=== PATIENT | male | born 1955 | race Caucasian/White ===

== ENCOUNTER → 2019-06-20 10:11 | Outpatient (BNVA) | payer MEDICARE, MEDICAID, SELFPAY | PROVIDERS: Family Provider Nurse Practitioner Family; PCP Nurse Practitioner Family; Visit Provider Anesthesiology | DX: M54.5 Low back pain (principal); M25.551 Pain in right hip; Z79.891 Long term (current) use of opiate analgesic | CPT/HCPCS: 99214 ==

== ENCOUNTER → 2019-12-10 10:41 | Outpatient (BNVA) | payer MEDICARE, SELFPAY | PROVIDERS: Family Provider Nurse Practitioner Family; PCP Nurse Practitioner Family; Visit Provider Anesthesiology Pain Medicine | DX: M51.16 Intervertebral disc disorders with radiculopathy, lumbar region (principal); M51.36 Other intervertebral disc degeneration, lumbar region; M47.816 Spondylosis without myelopathy or radiculopathy, lumbar region; M16.0 Bilateral primary osteoarthritis of hip; M25.551 Pain in right hip; Z79.891 Long term (current) use of opiate analgesic | CPT/HCPCS: 20610; 99214; J1030; J3490 ==

== ENCOUNTER 2019-12-18 12:47 | Outpatient (CLI) | payer MEDICARE, SELFPAY ==
--- NOTE | 2019-12-18 12:51 | XR_ITS ---
WS: [id number] HIPS BILATERAL TECHNIQUE: 5 views bilateral hips Including pelvis CLINICAL INFORMATION: pain COMPARISON: 09 07,011 FINDINGS: Postoperative changes left ZIA. Hardware appears well seated. No evidence of hardware loosening. Cerc travis wires. Advanced degenerative arthritis right hip with joint space narrowing and hypertrophic mary kate nges. Small wire fragment projected over the pelvis. XR/XR hip BI 3-4V wo/w pel [id number] IMPRESSION: 1. Postoperative changes left ZIA with cerclage wires. This appears relatively stable since 2010. 2. Advanced osteoarthritis right hip with joint space narrowing and hypertroph ic changes.
== END 2019-12-18 12:48 | disposition home or self-care (01) ==
LOC: RADWPI 12:50
PROVIDERS: Family Provider Nurse Practitioner Family; PCP Nurse Practitioner Family; Visit Provider Anesthesiology Pain Medicine
DX: M16.11 Unilateral primary osteoarthritis, right hip
CPT/HCPCS: 73522

== ENCOUNTER → 2020-01-30 09:08 | Outpatient (BNVA) | payer MEDICARE, SELFPAY | PROVIDERS: Family Provider Nurse Practitioner Family; PCP Nurse Practitioner Family; Visit Provider Anesthesiology Pain Medicine | DX: M51.16 Intervertebral disc disorders with radiculopathy, lumbar region (principal); M47.816 Spondylosis without myelopathy or radiculopathy, lumbar region; M51.36 Other intervertebral disc degeneration, lumbar region; M70.61 Trochanteric bursitis, right hip; Y93.9 Activity, unspecified; Z79.891 Long term (current) use of opiate analgesic | CPT/HCPCS: 99213 ==

== ENCOUNTER → 2020-02-01 08:49 | Outpatient (BNVA) | payer MEDICARE, SELFPAY | PROVIDERS: Family Provider Nurse Practitioner Family; PCP Nurse Practitioner Family; Visit Provider Nurse Practitioner Family | DX: J02.0 Streptococcal pharyngitis (principal); Z20.828 Contact with and (suspected) exposure to other viral communicable diseases; J01.40 Acute pansinusitis, unspecified | CPT/HCPCS: 87071; 87400; 87635; 87880 ==

== ENCOUNTER → 2020-02-27 09:43 | Outpatient (BNVA) | payer MEDICARE, SELFPAY | PROVIDERS: Family Provider Nurse Practitioner Family; PCP Nurse Practitioner Family; Visit Provider Anesthesiology Pain Medicine | DX: G89.29 Other chronic pain (principal); M47.816 Spondylosis without myelopathy or radiculopathy, lumbar region; M51.16 Intervertebral disc disorders with radiculopathy, lumbar region; M51.36 Other intervertebral disc degeneration, lumbar region; M70.61 Trochanteric bursitis, right hip; Y93.9 Activity, unspecified; Z79.891 Long term (current) use of opiate analgesic | CPT/HCPCS: 99213 ==

== ENCOUNTER → 2020-04-16 13:45 | Outpatient (BNVA) | payer MEDICARE, SELFPAY | PROVIDERS: Family Provider Nurse Practitioner Family; PCP Nurse Practitioner Family; Visit Provider Anesthesiology Pain Medicine | DX: G89.29 Other chronic pain (principal); M51.16 Intervertebral disc disorders with radiculopathy, lumbar region; M51.36 Other intervertebral disc degeneration, lumbar region; M47.816 Spondylosis without myelopathy or radiculopathy, lumbar region; M70.61 Trochanteric bursitis, right hip; M79.604 Pain in right leg; Z79.891 Long term (current) use of opiate analgesic; Y93.9 Activity, unspecified | CPT/HCPCS: 99214 ==

== ENCOUNTER → 2020-05-05 13:39 | Outpatient (BNVA) | payer MEDICARE, SELFPAY | PROVIDERS: Family Provider Nurse Practitioner Family; PCP Nurse Practitioner Family; Visit Provider Anesthesiology Pain Medicine | DX: M51.16 Intervertebral disc disorders with radiculopathy, lumbar region (principal) | CPT/HCPCS: 64483; 64484; J1100; J3490 ==

== ENCOUNTER → 2020-05-13 13:53 | Outpatient (BNVA) | payer MEDICARE, SELFPAY | PROVIDERS: Family Provider Nurse Practitioner Family; PCP Nurse Practitioner Family; Visit Provider Anesthesiology Pain Medicine | DX: M51.16 Intervertebral disc disorders with radiculopathy, lumbar region (principal); M47.816 Spondylosis without myelopathy or radiculopathy, lumbar region; M51.36 Other intervertebral disc degeneration, lumbar region; M70.61 Trochanteric bursitis, right hip; Y93.9 Activity, unspecified; Z79.891 Long term (current) use of opiate analgesic | CPT/HCPCS: 99214 ==

== ENCOUNTER → 2020-07-04 12:04 | Outpatient (BNVA) | payer MEDICARE, SELFPAY | PROVIDERS: Family Provider Nurse Practitioner Family; PCP Nurse Practitioner Family; Visit Provider Nurse Practitioner Family | DX: E55.9 Vitamin D deficiency, unspecified (principal); I10 Essential (primary) hypertension; Z79.899 Other long term (current) drug therapy | CPT/HCPCS: 80053; 80061; 81003; 82306; 83036; 84443; 85025 ==

== ENCOUNTER → 2020-07-07 13:19 | Outpatient (BNVA) | payer MEDICARE, SELFPAY | PROVIDERS: Family Provider Nurse Practitioner Family; PCP Nurse Practitioner Family; Visit Provider Nurse Practitioner Family | DX: N40.1 Benign prostatic hyperplasia with lower urinary tract symptoms (principal); A49.9 Bacterial infection, unspecified; N39.0 Urinary tract infection, site not specified; R35.0 Frequency of micturition; Z12.5 Encounter for screening for malignant neoplasm of prostate | CPT/HCPCS: G0103 ==

== ENCOUNTER → 2020-07-14 08:50 | Outpatient (BNVA) | payer MEDICARE, SELFPAY | PROVIDERS: Family Provider Nurse Practitioner Family; PCP Nurse Practitioner Family; Visit Provider Anesthesiology Pain Medicine | DX: M51.16 Intervertebral disc disorders with radiculopathy, lumbar region (principal); M47.816 Spondylosis without myelopathy or radiculopathy, lumbar region; M51.36 Other intervertebral disc degeneration, lumbar region; M70.61 Trochanteric bursitis, right hip; Z79.891 Long term (current) use of opiate analgesic; Y93.9 Activity, unspecified | CPT/HCPCS: 99214 ==

== ENCOUNTER → 2020-07-22 13:58 | Outpatient (BNVA) | payer MEDICARE, MEDICAID, SELFPAY | PROVIDERS: Family Provider Nurse Practitioner Family; PCP Nurse Practitioner Family; Referring Provider Nurse Practitioner Family; Visit Provider Nurse Practitioner Family | DX: N39.0 Urinary tract infection, site not specified (principal); A49.9 Bacterial infection, unspecified; N40.1 Benign prostatic hyperplasia with lower urinary tract symptoms | CPT/HCPCS: 81003 ==

== ENCOUNTER → 2020-09-03 13:09 | Outpatient (BNVA) | payer MEDICARE, MEDICAID, SELFPAY | PROVIDERS: Family Provider Nurse Practitioner Family; PCP Nurse Practitioner Family; Visit Provider Urology | DX: N40.1 Benign prostatic hyperplasia with lower urinary tract symptoms (principal) | CPT/HCPCS: 81003 ==

== ENCOUNTER → 2020-09-08 08:37 | Outpatient (BNVA) | payer MEDICARE, MEDICAID, SELFPAY | PROVIDERS: Family Provider Nurse Practitioner Family; PCP Nurse Practitioner Family; Visit Provider Anesthesiology Pain Medicine | DX: M51.16 Intervertebral disc disorders with radiculopathy, lumbar region (principal); M47.816 Spondylosis without myelopathy or radiculopathy, lumbar region; M51.36 Other intervertebral disc degeneration, lumbar region; M16.0 Bilateral primary osteoarthritis of hip; M70.61 Trochanteric bursitis, right hip; Y93.9 Activity, unspecified; Z79.891 Long term (current) use of opiate analgesic | CPT/HCPCS: 99214 ==

== ENCOUNTER → 2020-10-06 09:28 | Outpatient (BNVA) | payer MEDICARE, MEDICAID, SELFPAY | PROVIDERS: Family Provider Nurse Practitioner Family; PCP Nurse Practitioner Family; Visit Provider Anesthesiology Pain Medicine | DX: M51.16 Intervertebral disc disorders with radiculopathy, lumbar region (principal); M47.816 Spondylosis without myelopathy or radiculopathy, lumbar region; M51.36 Other intervertebral disc degeneration, lumbar region; M70.61 Trochanteric bursitis, right hip; Z79.891 Long term (current) use of opiate analgesic | CPT/HCPCS: 99214 ==

== ENCOUNTER → 2020-11-06 13:31 | Outpatient (BNVA) | payer MEDICARE, MEDICAID, SELFPAY | PROVIDERS: Family Provider Nurse Practitioner Family; PCP Nurse Practitioner Family; Visit Provider Anesthesiology Pain Medicine | DX: M51.16 Intervertebral disc disorders with radiculopathy, lumbar region (principal); M47.816 Spondylosis without myelopathy or radiculopathy, lumbar region; M51.36 Other intervertebral disc degeneration, lumbar region; M70.61 Trochanteric bursitis, right hip; M79.604 Pain in right leg; Y93.9 Activity, unspecified; Z79.891 Long term (current) use of opiate analgesic | CPT/HCPCS: 99214 ==

== ENCOUNTER → 2020-12-09 10:03 | Outpatient (BNVA) | payer MEDICARE, MEDICAID, SELFPAY | PROVIDERS: Family Provider Nurse Practitioner Family; PCP Nurse Practitioner Family; Visit Provider Anesthesiology Pain Medicine | DX: M51.16 Intervertebral disc disorders with radiculopathy, lumbar region (principal); M47.816 Spondylosis without myelopathy or radiculopathy, lumbar region; M51.36 Other intervertebral disc degeneration, lumbar region; M70.61 Trochanteric bursitis, right hip; M79.605 Pain in left leg; M79.651 Pain in right thigh; Y93.9 Activity, unspecified; Z79.891 Long term (current) use of opiate analgesic | CPT/HCPCS: 99214 ==

== ENCOUNTER → 2020-12-30 09:03 | Outpatient (BNVA) | payer MEDICARE, MEDICAID, SELFPAY | PROVIDERS: Family Provider Nurse Practitioner Family; PCP Nurse Practitioner Family; Visit Provider Anesthesiology Pain Medicine | DX: M51.16 Intervertebral disc disorders with radiculopathy, lumbar region (principal); M25.562 Pain in left knee; M70.61 Trochanteric bursitis, right hip; M47.816 Spondylosis without myelopathy or radiculopathy, lumbar region; M51.36 Other intervertebral disc degeneration, lumbar region; Y93.9 Activity, unspecified; Z79.891 Long term (current) use of opiate analgesic | CPT/HCPCS: 99214 ==

== ENCOUNTER → 2021-02-10 12:53 | Outpatient (BNVA) | payer MEDICARE, MEDICAID, SELFPAY | PROVIDERS: Family Provider Nurse Practitioner Family; PCP Nurse Practitioner Family; Visit Provider Anesthesiology Pain Medicine | DX: G89.29 Other chronic pain (principal); M51.16 Intervertebral disc disorders with radiculopathy, lumbar region; M47.816 Spondylosis without myelopathy or radiculopathy, lumbar region; M51.36 Other intervertebral disc degeneration, lumbar region; M70.61 Trochanteric bursitis, right hip; M79.651 Pain in right thigh; Y93.9 Activity, unspecified; Z79.891 Long term (current) use of opiate analgesic | CPT/HCPCS: 99213 ==

== ENCOUNTER → 2021-03-10 10:44 | Outpatient (BNVA) | payer MEDICARE, MEDICAID, SELFPAY | PROVIDERS: Family Provider Nurse Practitioner Family; PCP Nurse Practitioner Family; Visit Provider Urology | DX: N40.1 Benign prostatic hyperplasia with lower urinary tract symptoms (principal) | CPT/HCPCS: 81003 ==

== ENCOUNTER → 2021-04-07 10:39 | Outpatient (BNVA) | payer MEDICARE, MEDICAID, SELFPAY | PROVIDERS: Family Provider Nurse Practitioner Family; PCP Nurse Practitioner Family; Visit Provider Anesthesiology Pain Medicine | DX: M51.16 Intervertebral disc disorders with radiculopathy, lumbar region (principal); M47.816 Spondylosis without myelopathy or radiculopathy, lumbar region; M51.36 Other intervertebral disc degeneration, lumbar region; M70.61 Trochanteric bursitis, right hip; M16.11 Unilateral primary osteoarthritis, right hip; M79.651 Pain in right thigh; Y93.9 Activity, unspecified; Z79.891 Long term (current) use of opiate analgesic; Z87.891 Personal history of nicotine dependence | CPT/HCPCS: 99214 ==

== ENCOUNTER → 2021-06-08 10:18 | Outpatient (BNVA) | payer MEDICARE, MEDICAID, SELFPAY | PROVIDERS: Family Provider Nurse Practitioner Family; PCP Nurse Practitioner Family; Visit Provider Anesthesiology Pain Medicine | DX: M51.16 Intervertebral disc disorders with radiculopathy, lumbar region (principal); M47.816 Spondylosis without myelopathy or radiculopathy, lumbar region; M51.36 Other intervertebral disc degeneration, lumbar region; M70.61 Trochanteric bursitis, right hip; M79.651 Pain in right thigh; Z79.891 Long term (current) use of opiate analgesic; Z87.891 Personal history of nicotine dependence; Y93.9 Activity, unspecified | CPT/HCPCS: 99214 ==

== ENCOUNTER → 2021-12-14 15:45 | Outpatient (BNVA) | payer MEDICARE, MEDICAID, SELFPAY | PROVIDERS: Family Provider Nurse Practitioner Family; PCP Nurse Practitioner Family; Visit Provider Nurse Practitioner | DX: G47.00 Insomnia, unspecified (principal) | CPT/HCPCS: 80053; 83735 ==

== ENCOUNTER → 2021-12-30 10:53 | Outpatient (BNVA) | payer MEDICARE, MEDICAID, SELFPAY | PROVIDERS: Family Provider Nurse Practitioner Family; PCP Family Medicine; Visit Provider Family Medicine | DX: M54.9 Dorsalgia, unspecified (principal); G89.29 Other chronic pain; M25.551 Pain in right hip; M25.561 Pain in right knee; M25.562 Pain in left knee; M19.90 Unspecified osteoarthritis, unspecified site; Z96.642 Presence of left artificial hip joint; Z96.652 Presence of left artificial knee joint; M19.041 Primary osteoarthritis, right hand; M19.042 Primary osteoarthritis, left hand | CPT/HCPCS: 85651; 86160; 86162; 86235; 86255; 86376; 86431 ==

== ENCOUNTER → 2022-03-11 12:34 | Outpatient (BNVA) | payer MEDICARE, MEDICAID, SELFPAY | PROVIDERS: Family Provider Nurse Practitioner Family; PCP Family Medicine; Visit Provider Urology | DX: N40.1 Benign prostatic hyperplasia with lower urinary tract symptoms (principal); N32.81 Overactive bladder; R35.0 Frequency of micturition; N52.9 Male erectile dysfunction, unspecified; R35.89 Other polyuria | CPT/HCPCS: 51741; 51798; 81003; 99213 ==

== ENCOUNTER → 2022-06-17 12:19 | Outpatient (BNVA) | payer MEDICARE, MEDICAID, SELFPAY | PROVIDERS: Family Provider Nurse Practitioner Family; PCP Family Medicine; Visit Provider Family Medicine | DX: M13.0 Polyarthritis, unspecified (principal); Z79.1 Long term (current) use of non-steroidal anti-inflammatories (NSAID); M25.50 Pain in unspecified joint; I10 Essential (primary) hypertension; Z79.891 Long term (current) use of opiate analgesic; Z79.899 Other long term (current) drug therapy | CPT/HCPCS: 80053; 80061; 83036; 85025; 86160; 86162; 86235; 86255; 86376 ==

== ENCOUNTER → 2022-08-31 10:04 | Outpatient (BNVA) | payer MEDICARE, MEDICAID, SELFPAY | PROVIDERS: Family Provider Nurse Practitioner Family; PCP Family Medicine; Visit Provider Internal Medicine Rheumatology | DX: Z79.899 Other long term (current) drug therapy (principal); M19.90 Unspecified osteoarthritis, unspecified site; Z11.59 Encounter for screening for other viral diseases; M19.042 Primary osteoarthritis, left hand; M19.041 Primary osteoarthritis, right hand; M17.11 Unilateral primary osteoarthritis, right knee; M19.072 Primary osteoarthritis, left ankle and foot; M19.071 Primary osteoarthritis, right ankle and foot | CPT/HCPCS: 36415; 73130; 73562; 73630; 82306; 83520; 85651; 86140; 86200; 86480; 86704; 86803; 87340; 99204 ==

== ENCOUNTER → 2022-11-23 10:13 | Outpatient (BNVA) | payer MEDICARE, MEDICAID, SELFPAY | PROVIDERS: Family Provider Nurse Practitioner Family; PCP Family Medicine; Visit Provider Internal Medicine Rheumatology | DX: M15.9 Polyosteoarthritis, unspecified (principal); G60.0 Hereditary motor and sensory neuropathy; Z87.39 Personal history of other diseases of the musculoskeletal system and connective tissue; Z79.899 Other long term (current) drug therapy; Z71.85 Encounter for immunization safety counseling | CPT/HCPCS: 99214 ==

== ENCOUNTER → 2022-12-20 09:43 | Outpatient (BNVA) | payer MEDICARE, MEDICAID, SELFPAY | PROVIDERS: Family Provider Nurse Practitioner Family; PCP Family Medicine; Visit Provider Podiatrist Foot & Ankle Surgery | DX: I73.9 Peripheral vascular disease, unspecified; G60.0 Hereditary motor and sensory neuropathy; M20.41 Other hammer toe(s) (acquired), right foot; M20.42 Other hammer toe(s) (acquired), left foot; M21.171 Varus deformity, not elsewhere classified, right ankle; L84 Corns and callosities; L60.3 Nail dystrophy | CPT/HCPCS: 11056; 11721; 99204 ==

== ENCOUNTER → 2023-02-22 10:39 | Outpatient (BNVA) | payer MEDICARE, MEDICAID, SELFPAY | PROVIDERS: Family Provider Nurse Practitioner Family; PCP Family Medicine; Visit Provider Internal Medicine Rheumatology | DX: Z79.899 Other long term (current) drug therapy (principal); M15.9 Polyosteoarthritis, unspecified; G60.0 Hereditary motor and sensory neuropathy; Z87.39 Personal history of other diseases of the musculoskeletal system and connective tissue; Z71.85 Encounter for immunization safety counseling | CPT/HCPCS: 36415; 80076; 82565; 85025; 86140; 99214 ==

== ENCOUNTER → 2023-03-21 09:39 | Outpatient (BNVA) | payer MEDICARE, MEDICAID, SELFPAY | PROVIDERS: Family Provider Nurse Practitioner Family; PCP Family Medicine; Visit Provider Podiatrist Foot & Ankle Surgery | DX: L60.8 Other nail disorders (principal); I73.9 Peripheral vascular disease, unspecified; G60.0 Hereditary motor and sensory neuropathy; M20.41 Other hammer toe(s) (acquired), right foot; M20.42 Other hammer toe(s) (acquired), left foot; M21.171 Varus deformity, not elsewhere classified, right ankle; L84 Corns and callosities; L60.3 Nail dystrophy | CPT/HCPCS: 11056; 11721; 99213 ==

== ENCOUNTER → 2023-06-01 09:07 | Outpatient (BNVA) | payer MEDICARE, SELFPAY | PROVIDERS: Family Provider Nurse Practitioner Family; PCP Family Medicine; Visit Provider Internal Medicine Rheumatology | DX: M15.9 Polyosteoarthritis, unspecified (principal); G60.0 Hereditary motor and sensory neuropathy; Z87.39 Personal history of other diseases of the musculoskeletal system and connective tissue; Z79.899 Other long term (current) drug therapy; Z71.85 Encounter for immunization safety counseling; I73.9 Peripheral vascular disease, unspecified; L60.3 Nail dystrophy; L84 Corns and callosities; M20.41 Other hammer toe(s) (acquired), right foot; M20.42 Other hammer toe(s) (acquired), left foot; M21.171 Varus deformity, not elsewhere classified, right ankle; L60.8 Other nail disorders | CPT/HCPCS: 11056; 11721; 99214 ==

== ENCOUNTER → 2023-08-24 12:23 | Outpatient (BNVA) | payer MEDICARE, MEDICAID, SELFPAY | PROVIDERS: Family Provider Nurse Practitioner Family; PCP Family Medicine; Visit Provider Podiatrist Foot & Ankle Surgery | DX: I73.9 Peripheral vascular disease, unspecified; G60.0 Hereditary motor and sensory neuropathy; M20.41 Other hammer toe(s) (acquired), right foot; M20.42 Other hammer toe(s) (acquired), left foot; M21.171 Varus deformity, not elsewhere classified, right ankle; L84 Corns and callosities; L60.3 Nail dystrophy; L60.8 Other nail disorders | CPT/HCPCS: 11056; 11721 ==

== ENCOUNTER → 2023-09-07 09:13 | Outpatient (BNVA) | payer MEDICARE, MEDICAID, SELFPAY | PROVIDERS: Family Provider Nurse Practitioner Family; PCP Family Medicine; Visit Provider Internal Medicine Rheumatology | DX: Z79.899 Other long term (current) drug therapy (principal); Z87.39 Personal history of other diseases of the musculoskeletal system and connective tissue; M15.9 Polyosteoarthritis, unspecified; G60.0 Hereditary motor and sensory neuropathy; Z71.85 Encounter for immunization safety counseling | CPT/HCPCS: 99214 ==

== ENCOUNTER → 2023-11-23 13:11 | Outpatient (BNVA) | payer MEDICARE, MEDICAID, SELFPAY | PROVIDERS: Family Provider Nurse Practitioner Family; PCP Family Medicine; Visit Provider Podiatrist Foot & Ankle Surgery | DX: I73.9 Peripheral vascular disease, unspecified (principal); G60.0 Hereditary motor and sensory neuropathy; M20.41 Other hammer toe(s) (acquired), right foot; M20.42 Other hammer toe(s) (acquired), left foot; M21.171 Varus deformity, not elsewhere classified, right ankle; L84 Corns and callosities; L60.3 Nail dystrophy; L60.8 Other nail disorders | CPT/HCPCS: 11056; 11721 ==

== ENCOUNTER → 2024-01-18 09:49 | Outpatient (BNVA) | payer MEDICARE, MEDICAID, SELFPAY | PROVIDERS: Family Provider Nurse Practitioner Family; PCP Family Medicine; Visit Provider Internal Medicine Rheumatology | DX: M15.9 Polyosteoarthritis, unspecified (principal); G60.0 Hereditary motor and sensory neuropathy; Z87.39 Personal history of other diseases of the musculoskeletal system and connective tissue; Z79.899 Other long term (current) drug therapy; Z71.85 Encounter for immunization safety counseling; Z87.891 Personal history of nicotine dependence | CPT/HCPCS: 99214 ==

== ENCOUNTER → 2024-02-15 09:28 | Outpatient (BNVA) | payer MEDICARE, MEDICAID, SELFPAY | PROVIDERS: Family Provider Nurse Practitioner Family; PCP Family Medicine; Visit Provider Podiatrist Foot & Ankle Surgery | DX: I73.9 Peripheral vascular disease, unspecified (principal); G60.0 Hereditary motor and sensory neuropathy; L84 Corns and callosities; L60.3 Nail dystrophy | CPT/HCPCS: 11056; 11721 ==

== ENCOUNTER → 2024-02-20 09:51 | Outpatient (BNVA) | payer MEDICARE, MEDICAID, SELFPAY | PROVIDERS: Family Provider Nurse Practitioner Family; PCP Family Medicine; Visit Provider Internal Medicine Rheumatology | DX: Z87.39 Personal history of other diseases of the musculoskeletal system and connective tissue (principal); Z79.899 Other long term (current) drug therapy | CPT/HCPCS: 80076; 82565; 85025; 85651; 86140 ==

== ENCOUNTER 2024-03-02 10:51 | Emergency (ER) | payer MEDICARE, MEDICAID, SELFPAY ==
[2024-03-02 11:01] VITALS: BP 179/71; PULSE 55; RESP 15; TEMP 36.6; O2SAT 97; BMI 28.0
--- NOTE | 2024-03-02 11:13 | XR_ITS ---
WS: [id number] Right femur and thigh, AP and lateral views, 03/02/2024 Clinical Data: Injury Comparison: Bilateral hips, 12/18/2019 Findings: No fractures or dislocations are seen. The soft tissues are normal. The visualized knee shows osteoar thritis. The right hip shows narrowing, sclerosis, cyst formation and deformity of the spherical shape of the right femoral head. There is a small metal item in the true pelvis. XR/XR femur RT min 2V* [id number] Impression: Severe osteoarthritis of the right hip.
[2024-03-02 11:33] VITALS: RESP 16; O2SAT 98
[2024-03-02] MEDS: morphine 4 mg/mL SDV 1 mL 6 MG IM (11:33)
[2024-03-02] MEDS: ondansetron 4 MG Tablet PO (11:35)
--- NOTE | 2024-03-02 11:59 | W.ED.EXTPRO ---
HPI - Extremity Problem General: Chief complaint: Extremity Injury, Lower Stated complaint: RT Hip inj Time Seen by Provider: 03/02/24 10:58 History of Present Illness: This patient is a 68-year-old white male who presents to the emergency department complaining of right lateral hip pain. Patient states he stepped into a hole on Tuesday and tripped and fell up against his truck. He struck the right side of his hip on the truck. He saw his primary care provider on Tuesday. He states he was given a shot in the right hip which helped briefly but then had severe pain again the next morning. Patient does have a history of degenerative disc disease, osteoarthritis and chronic pain. He is on multiple medications including colchicine, gabapentin, hydrocodone, methotrexate, hydroxychloroquine and prednisone. Related Data Home Medications Medication Instructions Recorded Confirmed cholecalciferol (vitamin D3) 50 50 mcg PO DAILY 01/30/20 03/02/24 mcg (2,000 unit) capsule omega-3 fatty acids 1,000 mg 1,000 mg PO DAILY 12/29/23 03/02/24 capsule baclofen 10 mg tablet 10 mg PO BID 03/02/24 03/02/24 metoprolol tartrate 25 mg tablet 25 mg PO BID 03/02/24 03/02/24 omeprazole 40 mg capsule,delayed 40 mg PO DAILY 03/02/24 03/02/24 release ropinirole 1 mg tablet 1 mg PO QPM 03/02/24 03/02/24 Previous Rx's Medication Instructions Recorded prednisone 20 mg tablet See Rx Instructions .Route 04/18/23 .COMPLEX #30 tabs High top orthopedic shoes with #1 ea 06/01/23 custom insoles fluticasone propionate 50 See Rx Instructions .Route 12/12/23 mcg/actuation nasal .COMPLEX #16 grams spray,suspension diabetic shoes/inserts #1 ea 12/29/23 colchicine 0.6 mg tablet 0.6 mg PO BID #60 tabs 01/18/24 hydroxychloroquine 200 mg tablet 200 mg PO BID #180 tabs 01/18/24 prednisone 5 mg tablet 5 mg PO DAILY #90 tabs 01/18/24 syringe with needle 1 mL 25 gauge #50 ea 01/18/24 x 5/8 (Monoject TB Safety Syringe) gabapentin 400 mg capsule 400 mg PO TID 90 days #270 caps 01/27/24 hydrocodone 5 mg-acetaminophen 325 1 tab PO BID PRN pain 30 days #60 02/14/24 mg tablet tabs pilocarpine HCl 5 mg tablet 5 mg PO TID #90 tabs 02/22/24 celecoxib 100 mg capsule (Celebrex) 100 mg PO BID #60 caps 03/02/24 Allergies Allergy/AdvReac Type Severity Reaction Status Date / Time methotrexate Allergy Intermediate ALGY-Rash Verified 02/28/24 11:40 terbinafine [From Lamisil] Allergy Mild unknown Verified 02/28/24 11:17 tamsulosin [From Flomax] Allergy ALGY-Rash Verified 02/28/24 11:17 Review of Systems General: Reports: 10 or more systems reviewed and unremarkable except in HPI and below PFSH ED PFSH: Medical History (Updated 03/02/24 @ 11:57 by José Miguel Salamanca MD) Degenerative disc disease, lumbar Chronic pain of both shoulders Onychodystrophy Calcium pyrophosphate deposition disease (CPPD) Immunization counseling High risk medication use History of calcium pyrophosphate deposition disease (CPPD) Qlapmmc-Ddleg-Wlpss disease Osteoarthritis, generalized Polyarthritis Urinary incontinence Systemic agents, causing adverse effect in therapeutic use Vertigo Environmental and seasonal allergies Colon cancer screening Nausea Otitis media of both ears Osteoarthritis of right hip BPH loc w urin obs/LUTS Bacterial UTI OAB (overactive bladder) Osteoarthritis, hip, bilateral Degenerative lumbar disc Lumbar disc disease with radiculopathy Facet arthritis, degenerative, lumbar spine Bradycardia PVC (premature ventricular contraction) Pain in right hip Acute bilateral low back pain Disc disorder of lumbar region Encounter for long-term (current) use of NSAIDs Encounter for long-term opiate analgesic use Restless leg Vitamin D deficiency GERD (gastroesophageal reflux disease) Essential hypertension BPH (benign prostatic hyperplasia) Surgical History History of eye surgery History of surgery of liver Hx of cholecystectomy History of hip replacement Hx of total knee replacement H/O total knee replacement left knee Family History Other Diabetes Social History Smoking and tobacco/nicotine status: never used tobacco/nicotine Second hand smoke exposure: Yes Alcohol intake: never Substance/Drug Use: never Marital status: Current occupational status: disabled Physical Exam Const: COMMON NORMALS: no acute distress, patient oriented x3 and no limitations GENERAL APPEARANCE: cooperative and comfortable HENMT: COMMON NORMALS: normocephalic, atraumatic, Normal nasal mucous membranes and turbinates present, moist oral mucous membranes and oropharynx normal HEAD & SCALP: normal to inspection, normocephalic and atraumatic FACE & SINUS: normal facial exam NOSE: Normal nasal mucous membranes and turbinates present Eye: COMMON NORMALS: Equal, round and reactive pupils present, EOMs intact bilaterally and conjunctivae normal GENERAL EYE: appearance normal, both eyes and all related structures CONJUNCTIVA: Yes conjunctivae normal PUPIL: Yes Equal, round and reactive pupils present Neck/C-Spine: COMMON NORMALS: supple and no JVD Chest: COMMONS NORMALS: normal inspection of the chest Resp: COMMON NORMALS: normal respiratory effort and clear to auscultation bilaterally AUSCULTATION: clear to auscultation bilaterally Cardio: COMMON NORMALS: no JVD, regular rate, regular rhythm, No gallops present (Cardio), No murmurs present (Cardio) and No rub (Cardio) RATE: regular rate RHYTHM: regular rhythm GI: COMMON NORMALS: Normal to inspection, nondistended, normoactive bowel sounds present, Soft to palpation and non-tender AUSCULTATION: Yes normoactive bowel sounds PALPATION: Yes Soft to palpation : COMMON NORMALS: Yes no CVA tenderness BLADDER/KIDNEY EXAM: Yes no CVA tenderness Back/Pelvis: COMMON NORMALS: no CVA tenderness and thoracic and lumbar spine normal to inspection Extremity: COMMON NORMALS: normal to inspection NARRATIVE EXTREMITY EXAM: Full range of motion of the right hip with moderate discomfort. Pain to palpation over the greater trochanter. Neuro: COMMON NORMALS: patient oriented x3 and CN's II-XII intact bilaterally Psych: COMMON NORMALS: mental status grossly normal, Normal thought process present and cooperative THOUGHT PROCESS: Normal thought process present Skin: COMMON NORMALS: no rashes or lesions noted, turgor normal and no jaundice GENERAL SKIN EXAM: no rashes or lesions noted and turgor normal Course Vital Signs: Vital signs: Vital Signs Temperature 97.9 F 03/02/24 11:01 Pulse Rate 55 L 03/02/24 11:01 Respiratory Rate 16 03/02/24 11:33 Blood Pressure 179/71 03/02/24 11:01 Pulse Oximetry 98 03/02/24 11:33 Oxygen Delivery Me thod Room Air 03/02/24 11:01 MDM - Extremity (Nontraumatic) Medical Decision Making Patient was given injection of morphine and p.o. dose of Zofran. We also gave him an injection of Toradol IM. His x-rays do not reveal any fractures. He does have severe degenerative changes of the right hip. Patient is on multiple medications for pain and arthritis. I do not see that he is on an NSAID. I will place him on Celebrex 100 mg p.o. twice daily. Recommended he follow-up with his primary care provider next week for ongoing management of his arthritis. He was discharged in stable condition. Lab Data Radiology Impressions Femur X-Ray 03/02/24 11:13 Impression: Severe osteoarthritis of the right hip. All radiology interpretation(s) finalized by discharge Discharge Plan Discharge Patient Disposition: Home Clinical Impression: Osteoarthritis of right hip Qualifiers: Osteoarthritis type: primary Qualified Code(s): M16.11 - Unilateral primary osteoarthritis, right hip Condition: Stable Prescriptions: New celecoxib [Celebrex] 100 mg capsule 100 mg PO BID Qty: 60 1RF No Action cholecalciferol (vitamin D3) 50 mcg (2,000 unit) capsule 50 mcg PO DAILY (DME) High top orthopedic shoes with custom insoles See Rx Instructions .Route .MEDSUPPLY Qty: 1 0RF Rx Instructions: As directed by home hydroxychloroquine 200 mg tablet 200 mg PO BID Qty: 180 1RF prednisone 5 mg tablet 5 mg PO DAILY Qty: 90 1RF (DME) Monoject TB Safety Syringe 1 mL 25 gauge x 5/8 syringe See Rx Instructions .ROUTE .MEDSUPPLY Qty: 50 1RF Rx Instructions: As directed colchicine 0.6 mg tablet 0.6 mg PO BID Qty: 60 4RF omega-3 fatty acids 1,000 mg capsule 1,000 mg PO DAILY (DME) diabetic shoes/inserts See Rx Instructions .Route .MEDSUPPLY Qty: 1 0RF Rx Instructions: As directed prednisone 20 mg tablet See Rx Instructions .ROUTE .COMPLEX Qty: 30 1RF Dose Instruction: TAKE 2 TABLETS BY MOUTH DAILY FOR 7 DAYS NEEDED FOR ARTHRITIS FLARE Rx Instructions: TAKE 2 TABLETS BY MOUTH DAILY FOR 7 DAYS NEEDED FOR ARTHRITIS FLARE fluticasone propionate 50 mcg/actuation spray,suspension See Rx Instructions .ROUTE .COMPLEX Qty: 16 2RF Dose Instruction: ADMINISTER 2 SPRAYS INTO EACH NOSTRIL DAILY FOR 2 WEEKS, THEN 1 SPRAY INTO EACH NOSTRIL DAILY NEEDED Rx Instructions: ADMINISTER 2 SPRAYS INTO EACH NOSTRIL DAILY FOR 2 WEEKS, THEN 1 SPRAY INTO EACH NOSTRIL DAILY NEEDED gabapentin 400 mg capsule 400 mg PO TID 90 Days Qty: 270 0RF hydrocodone-acetaminophen 5-325 mg tablet 1 tab PO BID PRN (Reason: pain) 30 Days Qty: 60 0RF pilocarpine HCl 5 mg tablet 5 mg PO TID Qty: 90 5RF ropinirole 1 mg tablet 1 mg PO QPM omeprazole 40 mg capsule,delayed release(DR/EC) 40 mg PO DAILY baclofen 10 mg tablet 10 mg PO BID metoprolol tartrate 25 mg tablet 25 mg PO BID Discharge Orders: Discharge ED (Routine); Ordered 03/02/24 Ordered By: José Miguel Salamanca Referrals: Peg Vasquez MD [Primary Care Provider] - FATIMAH Nieves FNP [Family Provider] - Patient Instructions: Opioid Safety, Pain Management Activity Restrictions/Additional Instructions: Follow-up with your primary care provider next week for ongoing management. Coding Level of Care Code ED Residential Real Estate Agent for Nitin Mitchell
[2024-03-02] MEDS: ketorolac 30 mg/mL INJ IM (12:00)
[2024-03-02 12:23] VITALS: BP 158/78; PULSE 53; RESP 16; O2SAT 97
== END 2024-03-02 12:24 | disposition home or self-care (01) ==
PROVIDERS: Emergency Provider Emergency Medicine; PCP Family Medicine
DX: M16.11 Unilateral primary osteoarthritis, right hip (principal); I10 Essential (primary) hypertension
CPT/HCPCS: 73552; 96372; 99284; J1885; J2270; Q0162

== ENCOUNTER 2024-03-12 09:56 | Outpatient (CLI) | payer MEDICARE, SELFPAY ==
--- NOTE | 2024-03-12 10:08 | XRR_ITS ---
PROCEDURE INFORMATION: Exam: XR Right Hip Exam date and time: 03/12/2024 10:18 AM Age: 68 years old Clinical indication: Hip pain; Right hip; Additional info: M16.11 - unilateral primary osteoarthritis, right hip TECHNIQUE: Imaging protocol: Radiologic exam of the right hip. Views: 1 view hip with pelvis when performed. COMPARISON: 1. CR XR hip BI 3-4V wo/w pel [id number] 12/18/2019 1:00 PM 2. CR XR femur RT min 2V* [id number] 03/02/2024 11:21 AM 3. CR XR hip RT 2-3V wo/w pel* [id number] 02/20/2018 10:37 AM FINDINGS: Bones/joints: Right hip joint space narrowing with sclerosis and femoroacetabular osteophytic formation, similar to prior exams. Chronic deformity at the femoral head and neck junction could be related to old impacted fracture. Soft tissues: Unremarkable. XR/XR hip RT 2-3V wo/w pel* [id number] IMPRESSION: 1. Chronic deformity at the femoral head and neck junction could be related to old impacted fracture. 2. Prominent osteoarthritic changes in the right hip joint again noted, similar to prior exams.
--- NOTE | 2024-03-12 10:08 | XRR_ITS ---
PROCEDURE INFORMATION: Exam: XR Lumbosacral Spine Exam date and time: 03/12/2024 10:18 AM Age: 68 years old Clinical indication: Low back pain; Prior surgery; Surgery date: 6+ months; Surgery type: 3 left hip surgeries including replacement, 3 left knee surgeries including replacement; Patient HX: X3 weeks, lower back pain and pain right hip, difficulty walking, no specific injury; Additional info: M16.11 - unilateral primary osteoarthritis, right hip TECHNIQUE: Imaging protocol: Radiologic exam of the lumbosacral spine. Views: 6 or more views. Including flexion and extension views. COMPARISON: MR lumbar spine wo con* [id number] 05/29/2018 5:31 PM FINDINGS: Bones/joints: The lumbar spine maintains a normal lordotic curvature. Mild grade 1 anterolisthesis of L5 on S1 without significant change between flexion and extension views. The vertebral bodies maintain normal height. The intervertebral discs maintain normal height. Lower lumbar facet arthropathy, most predominant at L4-L5 and L5-S1. Partially visualized left-sided total hip arthroplasty. Soft tissues: Unremarkable. XR/XR lumbar spine 6V w f/e [id number] IMPRESSION: 1. Mild grade 1 anterolisthesis of L5 on S1 without significant change between flexion and extension views. 2. Lower lumbar facet arthropathy, most predominant at L4-L5 and L5-S1.
== END 2024-03-12 09:57 | disposition home or self-care (01) ==
PROVIDERS: PCP Family Medicine; Visit Provider Nurse Practitioner Family
DX: M16.11 Unilateral primary osteoarthritis, right hip (principal); M47.896 Other spondylosis, lumbar region; M25.751 Osteophyte, right hip; Q65.89 Other specified congenital deformities of hip
CPT/HCPCS: 72114; 73502

== ENCOUNTER 2024-04-05 11:09 | Outpatient (CLI) | payer MEDICARE, SELFPAY ==
--- NOTE | 2024-04-05 11:45 | MR_ITS ---
WS: [id number] MRI RIGHT HIP WITHOUT CONTRAST. COMPARISON: Radiograph 03/12/2024 Multiplanar, multisequence imaging is performed without contrast. Advanced degenerative disc space narrowing involving the RIGHT hip. Complete loss of cartilage with s ubchondral cystic changes on both sides of the joint space. There is moderate osteophytic ridging arpan und the femoral neck head junction. No remote fracture is identified. Osteophytic ridging from the ackerman perior lateral acetabulum. Small circumferential joint effusion. No lateral displacement or dislocation of the RIGHT hip. No adenopathy. Prior LEFT hip arthroplasty. MR/MR hip RT wo con* [id number] IMPRESSION: 1. Severe RIGHT hip joint osteoarthritis with loss of cartilage, subchondral c ystic changes at the femoral head and acetabulum. 2. No fracture. 3. Osteophytic ridging around the femoral neck head junction.
== END 2024-04-05 11:10 | disposition home or self-care (01) ==
LOC: RAD 11:11
PROVIDERS: PCP Family Medicine; Visit Provider Nurse Practitioner Family
DX: M16.11 Unilateral primary osteoarthritis, right hip (principal); M25.751 Osteophyte, right hip
CPT/HCPCS: 73721

== ENCOUNTER → 2024-05-17 09:30 | Outpatient (BNVA) | payer MEDICARE, SELFPAY | PROVIDERS: PCP Family Medicine; Visit Provider Student in an Organized Health Care Education/Training Program | DX: Z01.818 Encounter for other preprocedural examination (principal); M16.11 Unilateral primary osteoarthritis, right hip; R03.0 Elevated blood-pressure reading, without diagnosis of hypertension | CPT/HCPCS: 99204 ==

== ENCOUNTER → 2024-05-23 10:15 | Outpatient (BNVA) | payer MEDICARE, SELFPAY | PROVIDERS: PCP Family Medicine; Visit Provider Podiatrist Foot & Ankle Surgery | DX: I73.9 Peripheral vascular disease, unspecified (principal); G60.0 Hereditary motor and sensory neuropathy; L84 Corns and callosities; L60.3 Nail dystrophy; R26.9 Unspecified abnormalities of gait and mobility; Z91.81 History of falling; M21.371 Foot drop, right foot; M21.372 Foot drop, left foot | CPT/HCPCS: 11056; 11721; 99213 ==

== ENCOUNTER → 2024-05-30 09:19 | Outpatient (BNVA) | payer MEDICARE, SELFPAY | PROVIDERS: PCP Family Medicine; Visit Provider Internal Medicine Rheumatology | DX: M15.9 Polyosteoarthritis, unspecified (principal); G60.0 Hereditary motor and sensory neuropathy; Z87.39 Personal history of other diseases of the musculoskeletal system and connective tissue; Z79.899 Other long term (current) drug therapy; Z71.85 Encounter for immunization safety counseling | CPT/HCPCS: 99214 ==

== ENCOUNTER → 2024-06-12 09:53 | Outpatient (BNVA) | payer MEDICARE, SELFPAY | PROVIDERS: PCP Family Medicine; Visit Provider Student in an Organized Health Care Education/Training Program | DX: Z01.818 Encounter for other preprocedural examination (principal) | CPT/HCPCS: 80053; 81000; 85025 ==

== ENCOUNTER 2024-06-19 07:25 | Outpatient (CLI) | payer MEDICARE, SELFPAY ==
--- NOTE | 2024-06-19 08:00 | CT_ITS ---
WS: [id number] CT RIGHT hip for BROCK procedure HISTORY: PREOP COMPARISON: None available. TECHNIQUE: Protocol for BROCK total hip replacement has been obtained. This includes axial imaging from the hip joint through the knee joint. DLP: 862.67 mGy FINDINGS: Severe narrowing of the RIGHT hip joint. Acetabular osteophytic ridging. Subchondral cystic changes involving the acetabulum and femoral head. Osteophytic ridging around the femoral head neck junction. No fracture. Mild varus deformity. Mild tricompartment joint space narrowing at the RIGHT knee. No fractures. Patient has extensive hardware in the LEFT lower extremity including the hip and knee. CT/CT hip RT BROCK [id number] IMPRESSION: CT imaging provided for [facility] robotic total knee replacement.
--- NOTE | 2024-06-19 08:20 | ECG_ITS ---
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
== END 2024-06-19 07:26 | disposition home or self-care (01) ==
LOC: RAD 07:26
PROVIDERS: PCP Family Medicine; Visit Provider Student in an Organized Health Care Education/Training Program
DX: M16.11 Unilateral primary osteoarthritis, right hip (principal); Z01.818 Encounter for other preprocedural examination; R03.0 Elevated blood-pressure reading, without diagnosis of hypertension
CPT/HCPCS: 73700; 93005; 99213

== ENCOUNTER 2024-07-02 15:28 | Observation (INO) | payer MEDICARE, SELFPAY ==
[2024-07-02] VITALS (18 sets, daily range): BP systolic 102–185; BP diastolic 54–90; PULSE 57–95; RESP 12–20; TEMP 36.1–36.6; O2SAT 93–100; BMI 29.0
[2024-07-02] MEDS: acetaminophen 1,000 MG/100 ML PIGGYBACK 400 MG IV ×2 (09:23→17:12)
[2024-07-02] MEDS: ketorolac 30 mg/mL INJ IVP (09:23)
[2024-07-02] MEDS: lactated ringers 500 ML IV (09:26)
[2024-07-02] MEDS: scopolamine 1 mg PATCH 1 PATCH TRANSDERMA (09:29)
[2024-07-02] MEDS: sodium chloride 0.9% 1,000 ML 30 ML IV (10:09)
--- NOTE | 2024-07-02 10:11 | ANES.PREANE2 ---
Pre-Anesthetic Assessment Height/Weight: Height 5 ft 9 in Weight 197 lb Temp Pulse Resp BP Pulse Ox O2 Del Method 97.4 F L 57 L 18 159/73 96 Room Air 07/02/24 09:07 07/02/24 09:07 07/02/24 09:07 07/02/24 09:29 07/02/24 09:07 07/02/24 09:07 Preop Diagnosis: Hip arthritis Operation Date: 07/02/24 11:40 Proposed Procedures p Ned Robot Anterior Hip Arthroplasty(Right) - Peng Ortega, DO Was Beta Yousif taken within 24 hours: Yes Was Clonidine taken within 24 hours: N/A Last intake: Intake Last Liquid Date 07/01/24 Last Liquid Time 22:00 Last Solid Date 07/01/24 Last Solid Time 22:00 Social No alcohol and No tobacco Exam alert, oriented x 3, clear to auscultation bilaterally and regular rate & rhythm Airway Submandibular: within normal limits Cervical ROM: within normal limits Mallampati: Class II Comments: Comments: Multiple missing teeth, denies any loose Anesthetic Plan ASA status: 3 Anesthesia: MAC and Regional (specify below) Other: No prior issues with anesthesia NPO since yesterday evening History of hypertension on metoprolol Prednisone 20 mg 2?3 times a week for flares of arthritis On chronic hydrocodone Prior smoker GERD Vfqykvu-Iwbap-Jlbhy disease Labs reviewed 06/12/2024 and acceptable for procedure EKG sinus bradycardia Plan for spinal anesthetic Medications/Allergies Home Medications ?Medication ?Instructions ?Recorded ?Confirmed ?Last Taken ?Type metoprolol tartrate 25 mg tablet 25 mg PO BID 03/02/24 06/29/24 07/02/24 07:00 History 25 mg omeprazole 40 mg capsule,delayed 40 mg PO DAILY 03/02/24 06/29/24 06/29/24 History release ropinirole 1 mg tablet 1 mg PO QPM 90 days #90 tabs 03/23/24 06/29/24 Unknown Rx fluticasone propionate 50 See Rx Instructions .Route 05/14/24 06/29/24 Unknown Rx mcg/actuation nasal .COMPLEX #16 grams spray,suspension hydroxychloroquine 200 mg tablet 200 mg PO BID #180 tabs 05/30/24 06/29/24 06/29/24 Rx prednisone 20 mg tablet See Rx Instructions .Route 05/30/24 06/29/24 06/29/24 Rx .COMPLEX #30 tabs gabapentin 400 mg capsule 400 mg PO TID 90 days #270 caps 06/14/24 06/29/24 06/29/24 Rx hydrocodone 5 mg-acetaminophen 325 1 tab PO BID PRN pain 30 days #60 06/14/24 06/29/24 06/29/24 Rx mg tablet tabs Allergies Allergy/AdvReac Type Severity Reaction Status Date / Time methotrexate Allergy Intermediate ALGY-Rash Verified 07/02/24 09:21 terbinafine (From Lamisil) Allergy Mild unknown Verified 07/02/24 09:21 tamsulosin (From Flomax) Allergy ALGY-Rash Verified 07/02/24 09:21 Current Medications Generic Name Dose Route Start Last Admin Trade Name Freq PRN Reason Stop Dose Admin Lactated Ringer's 500 mls @ 500 mls/hr 07/02/24 09:15 07/02/24 10:09 Lactated Ringers IV 07/02/24 10:14 Infused .Q1H ONE Infusion Sodium Chloride 1,000 mls @ 30 mls/hr 07/02/24 09:15 07/02/24 10:09 Sodium Chloride 0.9% IV 07/03/24 09:14 30 mls/hr .Q24H JORDYN Administration PFSH Anesthesia Medical History Chronic pain Osteoarthritis of right hip Degenerative disc disease, lumbar Chronic pain of both shoulders Onychodystrophy Calcium pyrophosphate deposition disease (CPPD) Immunization counseling High risk medication use History of calcium pyrophosphate deposition disease (CPPD) Ydkoaqw-Bdysy-Qvfgv disease Osteoarthritis, generalized Polyarthritis Urinary incontinence Systemic agents, causing adverse effect in therapeutic use Vertigo Environmental and seasonal allergies Colon cancer screening Nausea Otitis media of both ears Osteoarthritis of right hip BPH loc w urin obs/LUTS Bacterial UTI OAB (overactive bladder) Osteoarthritis, hip, bilateral Degenerative lumbar disc Lumbar disc disease with radiculopathy Facet arthritis, degenerative, lumbar spine Bradycardia PVC (premature ventricular contraction) Pain in right hip Acute bilateral low back pain Disc disorder of lumbar region Encounter for long-term (current) use of NSAIDs Encounter for long-term opiate analgesic use Restless leg Vitamin D deficiency GERD (gastroesophageal reflux disease) Essential hypertension BPH (benign prostatic hyperplasia) Surgical History History of eye surgery History of surgery of liver Hx of cholecystectomy History of hip replacement Left hip Hx of total knee replacement H/O total knee replacement left knee Family History Other Diabetes Social History Smoking and tobacco/nicotine status: never used tobacco/nicotine Second hand smoke exposure: Yes Alcohol intake: never Substance/Drug Use: never Marital status: Current occupational status: disabled Data Anesthesia Cardiac Studies: No Data to Display
[2024-07-02 10:29] LABS: Basophils % 0.6 %; Eosinophils # 0.1 10^3/uL (0.0-0.8); Eosinophils % 2.3 %; Hematocrit 44.6 % (37-53); Lymphocytes # 1.3 10^3/uL (0.8-4.8); Mean Corpuscular HGB Conc 33.4 g/dL (30-55); Mean Corpuscular Hemoglobin 29.1 pg (27-33); Mean Corpuscular Volume 87.1 fl (82-101); Mean Platelet Volume 10.4 fL (7.4-10.4); Monocytes # 0.6 10^3/uL (0.2-0.9); Neutrophils # 3.25 10^3/uL (1.8-7.7); Neutrophils % 61.7 %; Nucleated Red Blood Cells % 0 %; Platelet Count 176 10^3/cmm (157-399); Red Blood Count 5.12 10^6/uL (3.85-5.65); Red Cell Distribution Width 13.2 % (12.1-15.1); White Blood Count 5.26 10^3/uL (3.29-11.43)
[2024-07-02 11:15] LABS: Blood Urea Nitrogen 11 mg/dL (8-23); Calcium 8.8 mg/dL (8.5-10.5); Carbon Dioxide 26 mmol/L (22-29); Chloride 106 mmol/L (98-107); Glomerular Filtration Rate 112.5 mL/min (90-130); Glucose 120 mg/dL (65-115); Osmolality Calculated 291 mOsm/kg (285-295); Sodium 140 mmol/L (136-145)
--- NOTE | 2024-07-02 11:41 | W.PM.OPSUD ---
Surgery/Procedure H&P Update DATE OF PROCEDURE: July 02, 2024 DATE H&P PERFORMED: 06/19/24 H&P UPDATE INFORMATION: I have reviewed H&P completed within last 30 days, I have examined patient prior to procedure and No changes to prior documentation CHANGES TO PREVIOUS DOCUMENTATION: Patient is cleared the preoperative clearance process. He currently is only taking his hydroxychloroquine from a rheumatoid medication as result he is optimized and ready to proceed with surgical invention no changes health since last visit. All questions answered. Will proceed with a right total hip arthroplasty?Ned robotic assist and plan. Anterior approach. Patient understands agrees current plan. Questions answered. PREOP DIAGNOSIS: Right hip arthritis PRIMARY INDICATION FOR PROCEDURE: Right hip degenerative joint disease PLANNED PROCEDURE: Operation Date: 07/02/24 11:40 Proposed Procedures p Ned Robot Anterior Hip Arthroplasty(Right) - Peng Ortega DO
[2024-07-02] MEDS: ceFAZolin 2,000 MG in sodium chloride 0.9% (plus) 50 ML 100 MG IV ×2 (11:48→18:14)
[2024-07-02] MEDS: tranexamic acid 1,000 mg/10mL SDV 1000 MG IV (12:40)
[2024-07-02] MEDS: VANCOMYCIN ADD-Vantage 1,000 MG VIAL 1000 MG XX (12:54)
[2024-07-02] MEDS: lidocaine-epi 1% 20 mL INJ INJECTION (12:55)
--- NOTE | 2024-07-02 15:40 | W.PM.BPON ---
Date of Procedure: 07/02/2024 Surgeon: Peng Ortega DO Pellet Mill Operator(s): Shlomo Ortega PA-C Procedure(s) performed: Right total hip arthroplasty?Ned robotic assisted (anterior approach) Findings of the procedure(s): Patient found to have severe right hip degenerative joint disease underwent procedure as planned without issues or complications Estimated blood loss: 400 mL Specimen(s) removed: Femoral head removed and acetabular reamings removed Post-operative diagnosis: Right hip degenerative joint disease
--- NOTE | 2024-07-02 15:42 | P.OP_ITS ---
Operative Report Date of procedure: July 02, 2024 Surgeon: Peng Ortega DO Last Remodeler Repairer: Shlomo Ortega PA-C: PA was necessary for assistance in this case with leg positioning retraction and protection of neurovascular structures as well as assistance in implantation wound closure and dressing application. Procedure: Preoperative diagnosis: Right hip degenerative joint disease Post-op diagnosis: Same Procedure done: Right total hip arthroplasty?Ned robotic assisted?anterior approach Implants: Jorge Alberto Trident acetabular shell size 56 mm Blue Eye acetabular screw 25 mm Jorge Alberto acetabular screw 25 mm Jorge Alberto insignia high offset stem size 7? femur stem Trident 0 degree polyethylene 36 degree inner diameter 36 mm femoral head ceramic -2.5 mm Surgeon: Peng Ortega DO Anesthesia: Other (Spinal) Estimated blood loss: 400 mL IV fluids: 1500 mL Complications: None Findings: See operative report narrative Condition: stable Disposition: floor Brief History: Patient is a 68-year-old female presented to my outpatient office setting findings consistent with jxkh-do-ngte arthritis advanced degenerative joint disease of the right hip.? We talked about treatment options as far as nonoperative and operative intervention. Pt has failed conservative treatment.? Patient's right hip degenerative joint disease has been been severe with worsening pain and decreased motion and decreased ambulation we talked about treatment options at this point time pt understands the risk benefits complication alternatives surgical nonsurgical treatment options.? Patient understands the risk of surgery and agrees to proceed.? Patient has underwent a preoperative evaluation. Pt cleared for surical intervention. Pt understood and was agreeable to proceed with a right total hip arthroplasty consent was reviewed and signed with patient.?? All questions answered.? Patient will be admitted postoperatively. Procedure: Patient was seen evaluated in the preoperative holding area.? Consent was re viewed and signed with patient.? Correct operative extremity was then marked. ? All questions were answered at this time.? Once cleared by anesthesia used to brought back to the operative suite he then underwent anesthesia per the anesthesia department of a spinal anesthetic. The patient was administered tranexamic acid and preop antibiotics, and placed in the supine position. All bony prominences were properly padded, securely fixed to the table, and administered?general?anesthetic. The patient was subsequently transferred from the hospital bed to the [place] table. Bilateral lower extremities were placed in the traction boots. The pelvis was well approximated against the perineal post.? Final timeout performed.? Patient received appropriate preoperative antibiotics. Both hips were then prepped and draped in a normal orthopedic fashion.? Started with a small incision 2 fingerbreadths above the ASIS on the left iliac wing to place? pelvic arrays.? Small incision was made directly down to bone.? 3 pelvic pins were placed with excellent fixation.? The robotic array was secured to the nonoperative iliac wing using sterile technique. The extremity was then definitively draped in standard, sterile fashion.? The array was found to be visible by the robot. ?A standard? anterior supine approach was performed to the?operative hip joint. The skin was incised down to the tensor fascia jp muscle and fascia. Fascia was split longitudinally in line with its fibers. The tensor fascia jp muscle was retracted laterally. The appropriate retractors were placed superiorly. Lateral circumflex vessels were identified and appropriately ligated. The hip capsule was then identified.? Appropriate retractors were placed superiorly and inferiorly along the capsule directly onto bone.? That was split longitudinally up to the acetabular rim in line with the femoral neck. The femoral capsule was found to be significantly hypertrophic, thickened, and significantly fibrotic. The capsule was then elevated both superiorly and inferiorly down to the lesser trochanter as well as up towards the greater trochanter.? Tag stitches were applied with 0 Vicryl into the capsule.? Femoral check point was?then inserted and confirmed on the lateral trochanter proximal femur.?? A distal marker?of a sterile EKG lead was placed into the distal femur for measurement of leg lengths.? Preoperative leg lengths were registered and confirmed at this point. Next the appropriate-sized neck cut was then performed after being measured with robotic assistance. Femoral head was removed atraumatically this was found to have significant degenerative changes and deformity with significant osteophyte formation and required multiple capsular releases just to get the head removed.? Femoral head was found to be severely degenerated and flattening with, eburnated bone. Acetabulum was also inspected and was found to have peripheral osteophytes as well as no evidence of cartilage consistent with wnpt-rw-xrjf arthritis.? Appropriate retractors were then placed in the anterior and posterior wall.? The remaining labrum was then excised from the periphery of the acetabular rim. Pulvinar was excised.? At this point registration for the Ned was performed on the acetabular side and confirmed. Once confirmed, any osteophytes able to be were removed. We planned 40 degrees of lateral opening and 20 degrees of anteversion. At this point, we reamed and medialized to the inner wall of the acetabulum with a size?56?reamer for line to line fit.?The acetabulum was found to have good bleeding bone throughout.?? Reamer removed excellent bleeding bone circumferentially with sufficient anterior and posterior wall. ?The definitive acetabular cup 56 mm was inserted and impacted under?Ned guidance with the appropriate amount of anteversion and lateral opening. It was then secured with 2x 6.5 mm cancellous screws in appropriate safe zone position.? I subsquently drilled measured and place appropriate length acetabular screws which measured 25 mm and 25 mm.? These had excellent fixation final x-rays were taken of the acetabular work and showed a seated and well fixed acetabular cup with appropriate position acetabular screws.? ?Next a 36-mm X3 neutral liner was impacted into the?acetabular shell and secured. Hip was then irrigated with copious amounts of irrigation. At this point, the remaining femoral releases were then performed allowing the adequate mobilization of the?right?femur.? Traction was confirmed to being off to the right lower extremity and the femur was then externally rotated, extended, and adducted giving adequate exposure of the proximal femur in the surgical wound. Box cut was then used to enter the intramedullary canal of the?femur. Canal finder was placed down the canal of the?operative femur. Appropriate-sized broaches from a size 0 up to a size 7 were impacted down the operative femoral canal with the appropriate amount of anteversion.? A multiple trials were attempted and it was found that?-2.5mm neck was found to be most appropriate for a soft tissue tensioning offset, stability and the leg lengths that was confirmed with Ned. ?Stability was then assessed and excellent stability with patient external rotation of greater than 90 degrees and traction with no evidence of hip instability.? Appropriate tension noted of the soft tissues. At this point, the hip was relocated.?Ned guidance was again used to confirm appropriate leg lengths.? I utilized C arm to evaluate for leg lengths as well I did slightly at the lengthen comparative to the contralateral extremity but this was the appropriate size for patient's stability and excellent soft tissue tensioning as well as this was mapped with preoperative planning given she had been significantly shortened given pt arthritis.? Operative hip was then re- dislocated using a bone hook. All trials were then removed from the?operative femur. Adequate exposure was then once again obtained. The trials were removed. The definitive Blue Eye insignia hip stem high offset size 7 was impacted down the?femoral canal with the appropriate amount of anteversion. The appropriate sized head 36 mm ceramic -2.5 mm was impacted onto the trunnion, and the?operative?hip was then relocated with traction and internal rotation. Final measurements were obtained on Ned confirming leg lengths and offset.? Once again hip stability was assessed and found to have excellent stability and appropriate soft tissue tensioning.? Hip was irrigated with copious amounts of irrigation.? Vancomycin powder was placed within the wound bed for added infection prophylaxis.? The superior and inferior leaflets of the capsule were then closed with Ethibond suture.? Vicryl tag stitches were removed.? The superficial layer of the tensor fascia jp fascia was closed using 0 stratafix suture in a running fashion.? Subcutaneous tissues were closed with running 3-0 Stratafix, skin was closed with 4-0 monocryl.?Surgical Prineo glue and steri strips were?applied and covered with a choco incisional VAC dressing to the operative side.?The incision on the non-operative side for the robotic array was irrigated and closed with layered fashion of 0 Vicryl, 2-0 Vicryl and running Monocryl suture and surgical glue and covered with Silverlon. ?The patient was subsequently awoken per Anesthesia and transferred to PACU in satisfactory condition. ?Leg lengths and rotational profile were found to be appropriate. ? DISPOSITION: The patient will be admitted to the hospital for initiation of DVT prophylaxis, physical therapy, pain control. The patient is to weight bear as tolerated. Anterior hip precautions, postoperative antibiotics,?postoperative TXA and Eliquis?for DVT prophylaxis.? Patient will receive appropriate discharge instructions as well as pain medication postoperatively and will follow up in my office in 2 weeks.? Patient with work with PT/OT.? Internal medicine will be consulted for medical management
--- NOTE | 2024-07-02 15:45 | XRR_ITS ---
PROCEDURE INFORMATION: Exam: XR Right Hip Exam date and time: 07/02/2024 3:59 PM Age: 68 years old Clinical indication: Device placement; Other: Jayda; Prior surgery; Surgery date: Post-operative (0-2 days); Additional info: Post op jayda, do in pacu TECHNIQUE: Imaging protocol: Radiologic exam of the right hip. Views: 1 view hip with pelvis when performed. COMPARISON: CT hip RT [facility] [id number] 06/19/2024 7:38 AM FINDINGS: Bones/joints: Right hip prosthesis with acetabular and femoral hardware. Satisfactory or anatomic alignment and position noted about the right hip. Frog-leg view right hip demonstrates smooth linear type lucency medial greater trochanter level, suggestive of overlying soft tissue lucent changes when correlating all views. No acute osseous abnormality. Partially visualized left hip prosthesis on the AP view of the pelvis and both hips. Soft tissues: Postsurgical soft tissue changes. XR/XR hip RT 2-3V wo/w pel* [id number] IMPRESSION: Postsurgical soft tissue changes with right hip prosthesis hardware.
[2024-07-02] MEDS: HYDROmorphone 1 mg/mL INJ 1 mL 0.5 MG IVP ×2 (16:05→16:15)
--- NOTE | 2024-07-02 16:08 | PC.NURSE ---
1545 - per Pippa, DORIS start pt with Dilaudid if pain control needed
--- NOTE | 2024-07-02 16:24 | PC.NURSE ---
This nurse took report from AVRIL Evangelista in PACU at [id number].
--- NOTE | 2024-07-02 16:28 | ANE.PACU2 ---
Inpatient post-anesthesia follow up: Airway intact: Yes Vital signs: Temperature 97.6 F Pulse Rate 70 Respiratory Rate 18 Blood Pressure 130/60 Pulse Oximetry 98 Oxygen Delivery Me thod Room Air Oxygen Flow Rate 8 Fraction of Inspir ed Oxygen Hydration adequate: Yes Nausea and vomiting: No Pain level: 1 Mental status: Baseline
--- NOTE | 2024-07-02 16:38 | PC.NURSE ---
1633 - accepted into room 276-1 with VIOLET Meneses at side - pt in no distress upon this nurse exiting room/pt care - BP 143/66 - pulse 65 - 02 100% tempt 97.0
--- NOTE | 2024-07-02 16:52 | PM.CONSULT ---
Providers/Reason For Consult Consulting Physician/Specialty*: Orthopedic Reason for Consult*: Hypertension, chronic pain, restless leg Attending Physician: Peng Ortega DO Primary Care Provider: Peg Vasquez MD History of Present Illness History of Present Illness Espinoza Escobar is a 68 year old male with a past medical history of CPPD arthritis, restless leg, chronic pain, Raynaud's syndrome, history of Cjfxpmr-Efynd-Bgfik disease, history of neuropathy who presents [facility] for right total hip arthroplasty, EBL 400 mL, seen postoperatively, denies any fevers, chills, no cough, no chest pain, does complain of pain in his hip Review of Systems Const: Denies: fever(s) Card: Denies: chest pain GI: Denies: abdominal pain Medications/Allergies Home Medications ?Medication ?Instructions ?Recorded ?Confirmed ?Last Taken ?Type metoprolol tartrate 25 mg tablet 25 mg PO BID 03/02/24 06/29/24 07/02/24 07:00 History 25 mg omeprazole 40 mg capsule,delayed 40 mg PO DAILY 03/02/24 06/29/24 06/29/24 History release ropinirole 1 mg tablet 1 mg PO QPM 90 days #90 tabs 03/23/24 06/29/24 Unknown Rx fluticasone propionate 50 See Rx Instructions .Route 05/14/24 06/29/24 Unknown Rx mcg/actuation nasal .COMPLEX #16 grams spray,suspension hydroxychloroquine 200 mg tablet 200 mg PO BID #180 tabs 05/30/24 06/29/24 06/29/24 Rx prednisone 20 mg tablet See Rx Instructions .Route 05/30/24 06/29/24 06/29/24 Rx .COMPLEX #30 tabs gabapentin 400 mg capsule 400 mg PO TID 90 days #270 caps 06/14/24 06/29/24 06/29/24 Rx hydrocodone 5 mg-acetaminophen 325 1 tab PO BID PRN pain 30 days #60 06/14/24 06/29/24 06/29/24 Rx mg tablet tabs Allergies Allergy/AdvReac Type Severity Reaction Status Date / Time methotrexate Allergy Intermediate ALGY-Rash Verified 07/02/24 09:21 terbinafine (From Lamisil) Allergy Mild unknown Verified 07/02/24 09:21 tamsulosin (From Flomax) Allergy ALGY-Rash Verified 07/02/24 09:21 PFSH Acute PFSH: Medical History Chronic pain Osteoarthritis of right hip Degenerative disc disease, lumbar Chronic pain of both shoulders Onychodystrophy Calcium pyrophosphate deposition disease (CPPD) Immunization counseling High risk medication use History of calcium pyrophosphate deposition disease (CPPD) Nzzitfd-Hizmp-Vdmgw disease Osteoarthritis, generalized Polyarthritis Urinary incontinence Systemic agents, causing adverse effect in therapeutic use Vertigo Environmental and seasonal allergies Colon cancer screening Nausea Otitis media of both ears Osteoarthritis of right hip BPH loc w urin obs/LUTS Bacterial UTI OAB (overactive bladder) Osteoarthritis, hip, bilateral Degenerative lumbar disc Lumbar disc disease with radiculopathy Facet arthritis, degenerative, lumbar spine Bradycardia PVC (premature ventricular contraction) Pain in right hip Acute bilateral low back pain Disc disorder of lumbar region Encounter for long-term (current) use of NSAIDs Encounter for long-term opiate analgesic use Restless leg Vitamin D deficiency GERD (gastroesophageal reflux disease) Essential hypertension BPH (benign prostatic hyperplasia) Surgical History History of eye surgery History of surgery of liver Hx of cholecystectomy History of hip replacement Left hip Hx of total knee replacement H/O total knee replacement left knee Family History Other Diabetes Social History Smoking and tobacco/nicotine status: never used tobacco/nicotine Second hand smoke exposure: Yes Alcohol intake: never Substance/Drug Use: never Marital status: Current occupational status: disabled Vitals/I&O/Wt Last Vital Signs Temp 97.7 F 07/02/24 16:25 Pulse 60 07/02/24 16:25 Resp 18 07/02/24 16:25 BP 152/65 07/02/24 16:25 Pulse Ox 100 07/02/24 16:25 O2 Del Method Room Air 07/02/24 16:25 O2 Flow Rate 8 07/02/24 15:50 07/02/24 07/02/24 07/02/24 06:59 14:59 22:59 Intake Total 550 / 550 847 / 1397 Output Total 525 / 525 Balance 550 / 550 322 / 872 Weight last 48 hrs Weight 89.358 kg Physical Exam Const: COMMON NORMALS: no acute distress and patient oriented x3 Eye: COMMON NORMALS: Equal, round and reactive pupils present PUPIL: Yes Equal, round and reactive pupils present Resp: COMMON NORMALS: normal respiratory effort, No retractions, No use of accessory muscles and clear to auscultation bilaterally AUSCULTATION: clear to auscultation bilaterally Cardio: COMMON NORMALS: regular rate, regular rhythm, S1 normal heart sound present and S2 normal heart sound present RATE: regular rate RHYTHM: regular rhythm HEART SOUNDS: S1 normal heart sound present and S2 normal heart sound present GI: COMMON NORMALS: Normal to inspection, nondistended, normoactive bowel sounds present and non-tender Extremity: COMMON NORMALS: no pedal edema Neuro: COMMON NORMALS: patient oriented x3 and CN's II-XII intact bilaterally Psych: COMMON NORMALS: mental status grossly normal Urinary Catheter Management: [place]: Cath Placed During This Visit: yes Urinary Catheter Date of Insertion: 07/02/24 Urinary Catheter Time of Insertion: 12:20 Data 07/02/24 09:20 07/02/24 10:45 A&P Assessment and plan (1) S/P total right hip arthroplasty: (2) Eapseai-Ezvio-Litqz disease: (3) BPH (benign prostatic hyperplasia): Qualifiers: Lower urinary tract symptom presence: symptoms present Lower urinary tract symptom detail: urinary frequency Qualified Code(s): N40.1 - Benign prostatic hyperplasia with lower urinary tract symptoms; R35.0 - Frequency of micturition (4) Essential hypertension: Plan Status post right total hip arthroplasty -Pain control and anticoagulation as per orthopedic team Hypertension, resume metoprolol tomorrow Restless leg resume ropinirole Chronic pain, resume gabapentin PDMP PDMP Reviewed: Not Reviewed Consult Attestations Medical Necessity Statement: Patient requires hospitalization for right total hip arthroplasty Ned robotic assisted Diagnoses S/P total right hip arthroplasty Z96.641 Bzaqdka-Hifdc-Stcdh disease G60.0 Benign prostatic hyperplasia with urinary frequency N40.1; R35.0 Lower urinary tract symptom presence: symptoms present Lower urinary tract symptom detail: urinary frequency Essential hypertension I10
[2024-07-02] MEDS: calcium carb-vit d 600mg/400unit 1 Tablet 1 EACH PO (17:09)
[2024-07-02] MEDS: sennosides-docusate Tablet 2 TAB PO (17:09)
[2024-07-02] MEDS: iron polysaccharide complex 150 mg Capsule PO (17:09)
[2024-07-02] MEDS: ketorolac 30 mg/mL INJ 15 MG IVP (17:09)
[2024-07-02] MEDS: mupirocin oint 22 gm 1 APPLIC NASAL (17:09)
[2024-07-02] MEDS: ropinirole 1 mg Tablet PO (17:10)
[2024-07-02] MEDS: tranexamic acid 1,000 MG/100 ML PREMIX 600 MG IV (17:12)
[2024-07-02] MEDS: chlorhexidine gluconate 0.12% Btl 473 mL 30 ML MUCOUS MEM ×2 (17:12→21:40)
[2024-07-02] MEDS: lactated ringers 1,000 ML 75 ML IV (17:13)
[2024-07-02] MEDS: oxyCODONE 5 mg IR Tab/Cap PO (20:55)
[2024-07-02] MEDS: gabapentin 400 mg Capsule PO (21:39)
[2024-07-03] VITALS (7 sets, daily range): BP systolic 128–135; BP diastolic 60–73; PULSE 68–86; RESP 16–18; TEMP 36.3–36.4; O2SAT 95–99; BMI 29.0
[2024-07-03] MEDS: ketorolac 30 mg/mL INJ 15 MG IVP ×2 (00:05→06:40)
[2024-07-03] MEDS: acetaminophen 1,000 MG/100 ML PIGGYBACK 400 MG IV ×2 (01:53→10:38)
[2024-07-03] MEDS: oxyCODONE 5 mg IR Tab/Cap PO ×3 (02:00→14:09)
[2024-07-03] MEDS: ceFAZolin 2,000 MG in sodium chloride 0.9% (plus) 50 ML 100 MG IV ×2 (02:11→10:41)
[2024-07-03 05:43] LABS: Basophils % 0.1 %; Lymphocytes # 0.6 10^3/uL (0.8-4.8); Lymphocytes % 6.6 %; Mean Corpuscular HGB Conc 32.9 g/dL (30-55); Mean Corpuscular Volume 88.4 fl (82-101); Monocytes # 0.9 10^3/uL (0.2-0.9); Monocytes % 9.8 %; Neutrophils # 7.32 10^3/uL (1.8-7.7); Neutrophils % 83.3 %; Nucleated Red Blood Cells % 0 %; Platelet Count 153 10^3/cmm (157-399); Red Blood Count 3.96 10^6/uL (3.85-5.65); Red Cell Distribution Width 13.3 % (12.1-15.1); White Blood Count 8.79 10^3/uL (3.29-11.43)
[2024-07-03 06:06] LABS: Anion Gap 12.2 (5-19); Blood Urea Nitrogen 14 mg/dL (8-23); Calcium 7.8 mg/dL (8.5-10.5); Carbon Dioxide 25 mmol/L (22-29); Chloride 107 mmol/L (98-107); Glomerular Filtration Rate 134.4 mL/min (90-130); Glucose 122 mg/dL (65-115); Osmolality Calculated 292 mOsm/kg (285-295); Potassium 4.2 mmol/L (3.5-5.1); Sodium 140 mmol/L (136-145)
[2024-07-03] MEDS: lactated ringers 1,000 ML 75 ML IV (06:42)
[2024-07-03] MEDS: multivitamin therapeutic Tablet 1 TAB PO (07:41)
[2024-07-03] MEDS: gabapentin 400 mg Capsule PO (07:41)
[2024-07-03] MEDS: sennosides-docusate Tablet 2 TAB PO (07:41)
[2024-07-03] MEDS: metoprolol tartrate 25 mg Tablet PO (07:41)
[2024-07-03] MEDS: iron polysaccharide complex 150 mg Capsule PO (07:41)
[2024-07-03] MEDS: calcium carb-vit d 600mg/400unit 1 Tablet 1 EACH PO (07:41)
[2024-07-03] MEDS: chlorhexidine gluconate 0.12% Btl 473 mL 30 ML MUCOUS MEM (07:42)
[2024-07-03] MEDS: apixaban 5 mg Tablet 2.5 MG PO (07:42)
[2024-07-03] MEDS: mupirocin oint 22 gm 1 APPLIC NASAL (07:43)
--- NOTE | 2024-07-03 10:01 | PC.CHAP ---
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 hydrochloric acid operator visit [] Patient/Family/Request visit [] Outpatient visit [] Follow-up visit [] Physician referral [] Code/Alert [x] Routine visit [] Staff referral [] Actively dying [] Patient sleeping [x] Family support [] [] Out of room [] Palliative care [] [] Receiving care in room [] Pre-surgical visit [] Trauma [] Long length of stay [] ICU visit [] Other: Relational/Emotional Strength [x] Patient feels connected with others/family/visitors/staff [] Distress [] Loneliness/isolation [] Abandonment Spirituality of Patient [x] Person of Tabitha [] Attends Taoism of their Tabitha [x] Believes in Prayer [] Reads Bible or Moravian materials [] There are Spiritual issues to be addressed 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 Interventions [x] Prayer [x] Active listening [] Non-anxious presence [x] Spiritual/emotional support [] Crisis/trauma care [] Spiritual counseling [] Bereavement support [] Provided bereavement packet [] Provided Bible/devotional materials [] Provided toy/stuffed animal, coloring book to patient or family member [] Provided Communion [] Anointing/[place] [] Salvation [x] Completed spiritual assessment [] Other: Impact on Illness or Injury [] Angry [] Fearful [] Anxious [] Often cries [] Exhaustion [] Unable to work [] Unable to attend anabaptist [] Unable to walk/stand [] Unable to read [] Unable to drive [] Unable to eat/drink [] Unable to sleep [] Unable to be with family [] Patient intubated [] Other: Summary Time spent with patient 5 min
--- NOTE | 2024-07-03 11:01 | P.PN_ITS ---
Subjective 2 Subjective: Patient was seen this morning, he has no complaints this morning, no fevers, no chills, no cough, no falls, plan on discharging today Vitals/I&O/Wt Last Vital Signs Temp 97.4 F L 07/03/24 08:00 Pulse 86 07/03/24 08:00 Resp 17 07/03/24 08:00 BP 129/73 07/03/24 08:00 Pulse Ox 96 07/03/24 08:00 O2 Del Method Room Air 07/03/24 08:00 O2 Flow Rate 8 07/02/24 15:50 07/02/24 07/03/24 07/03/24 22:59 06:59 14:59 Intake Total 1174.5 / 1724.5 1002.5 / 2727.0 460 / 460 Output Total 975 / 975 1630 / 2605 Balance 199.5 / 749.5 -627.5 / 122.0 460 / 460 Weight last 48 hrs Weight 89.358 kg Weight 89.358 kg Weight 89.358 kg Physical Exam 2 Const: COMMON NORMALS: no acute distress ORIENTATION/CONSCIOUSNESS: Yes awake, Yes oriented to person and Yes oriented to place; not oriented to time Resp: COMMON NORMALS: normal respiratory effort, No retractions, No use of accessory muscles and clear to auscultation bilaterally AUSCULTATION: clear to auscultation bilaterally Cardio: COMMON NORMALS: regular rate, regular rhythm, S1 normal heart sound present and S2 normal heart sound present RATE: regular rate RHYTHM: r egular rhythm HEART SOUNDS: S1 normal heart sound present and S2 normal heart sound present GI: COMMON NORMALS: Normal to inspection, nondistended, normoactive bowel sounds present and non-tender Extremity: COMMON NORMALS: no pedal edema Neuro: SENSORIUM/ORIENTATION: Yes oriented to person, Yes oriented to place and No oriented to time Psych: COMMON NORMALS: mental status grossly normal Urinary Catheter Management: [place]: Cath Placed During This Visit: yes Reason for Continuing Indwelling Catheter: Perioperative Use in Selected Surgeries Urinary Catheter Date of Insertion: 07/02/24 Urinary Catheter Time of Insertion: 12:20 Data 07/03/24 05:12 07/03/24 05:12 A&P Assessment and plan (1) S/P total right hip arthroplasty: (2) Jwpnhog-Fkjik-Vkjkd disease: (3) BPH (benign prostatic hyperplasia): Qualifiers: Lower urinary tract symptom presence: symptoms present Lower urinary tract symptom detail: urinary frequency Qualified Code(s): N40.1 - Benign prostatic hyperplasia with lower urinary tract symptoms; R35.0 - Frequency of micturition (4) Essential hypertension: Plan Status post right total hip arthroplasty -Pain control and anticoagulation as per orthopedic team Hypertension, resume metoprolol tomorrow Restless leg resume ropinirole Chronic pain, resume gabapentin PDMP PDMP Reviewed: Not Reviewed Attestations 2 Medical Necessity Statement*: Patient requires hospitalization for right hip arthroplasty, status post surgical invention, will discharge home Diagnoses S/P total right hip arthroplasty Z96.641 Sbumobx-Hzuai-Timmg disease G60.0 Benign prostatic hyperplasia with urinary frequency N40.1; R35.0 Lower urinary tract symptom presence: symptoms present Lower urinary tract symptom detail: urinary frequency Essential hypertension I10
[2024-07-03] MEDS: TRAMadol 50 mg Tablet PO (11:17)
--- NOTE | 2024-07-03 13:15 | P.DS_ITS ---
Discharge Providers Date of Admission: 07/02/24 15:28 Date of Discharge: June Attending Provider at Admission: Peng Ortega DO Attending Provider at Discharge: Peng Ortega DO Consults: Dr. Miller Primary Care Provider: Peg Vasquez MD Diagnoses at Discharge Discharge Diagnosis (1) S/P total right hip arthroplasty: Status: Acute Reason for Visit Reason for Visit: M16.11 Brief History: Status post right total hip arthroplasty?Ned robotic assisted anterior approach Hospital Course Hospital Course Patient was brought to the hospital through the preoperative holding area with plan for right total hip arthroplasty for right hip dengerative joint disease. Once cleared by anesthesia for surgery subsequently was taken back to the operative suite underwent anesthesia per the anesthesia department and then underwent right total hip arthroplasty with Ned robotic assistance anterior approach without any complications. Patient was then subsequently taken back to PACU in stable condition recovering well. Once recovered, patient was then subsequently admitted to the floor postoperatively. Internal medicine was consulted for medical management assistance. Patient weightbearing as tolerated to the right lower extremity, anterior hip precautions. PT/OT. Pain control. DVT prophylaxis. Postoperative antibiotics and TXA. dressing was change as needed. Internal medicine was on board and appreciate their medical management and assistance. Pt was determined on postoperative day 1 the patient was stable for discharge from orthopedic as well as internal medicine standpoint. Patient's labs were monitored daily. Patient will receive appropriate pain medication as well as DVT prophylaxis postoperatively. Appropriate discharge instructions as well. Patient was then discharged in stable condition. Patient will discharge home. Pt will follow-up with Orthopedics in the office in 2 weeks. Patient to follow-up with primary care provider within the next week. Patient understands and agrees with current plan. All questions answered. Understands there is any issues or concerns and contact the office. Physical Exam Narrative: Right hip examination: Dressing on in place, clean dry and intact. No evidence of saturation. Patient has normal postoperative swelling and tenderness to palpation to the right hip. Compartments are soft compressible,'s calf soft and nontender. Sensations intact to light touch distally. Distal pulses are palpable. Patient is able to wiggle toes as well as plantarflex and dorsiflex ankle. Patient can perform straight leg raise. Lamar incisional VAC dressing on the right hip clean dry and intact with good seal the left iliac wing hip incisions clean dry and intact, patient has normal postoperative tenderness palpation at incision sites. Urinary Catheter Management: [place]: Cath Placed During This Visit: yes Reason for Continuing Indwelling Catheter: Perioperative Use in Selected Surgeries Urinary Catheter Date of Insertion: 07/02/24 Urinary Catheter Time of Insertion: 12:20 Discharge Data Studies Completed and Pending Completed Studies During Hospitalization Category Date Time Status XR hip RT 2-3V wo/w pel* [id number] Routine Exams 07/02/24 15:45 Completed Radiology Impressions Hip/Pelvis X-Ray 07/02/24 15:45 IMPRESSION: Postsurgical soft tissue changes with right hip prosthesis hardware. Laboratory Results WBC 8.79 10^3/uL (3.29-11.43) 07/03/24 05:12 RBC 3.96 10^6/uL (3.85-5.65) 07/03/24 05:12 Hgb 11.50 g/dL (11.27-16.99) 07/03/24 05:12 Hct 35.0 % (37-53) L 07/03/24 05:12 MCV 88.4 fl (82-101) 07/03/24 05:12 MCH 29.0 pg (27-33) 07/03/24 05:12 MCHC 32.9 g/dL (30-55) 07/03/24 05:12 RDW 13.3 % (12.1-15.1) 07/03/24 05:12 Plt Count 153 10^3/cmm (157-399) L 07/03/24 05:12 MPV 10.0 fL (7.4-10.4) 07/03/24 05:12 Neut % (Auto) 83.3 % 07/03/24 05:12 Lymph % (Auto) 6.6 % 07/03/24 05:12 [place] % (Auto) 9.8 % 07/03/24 05:12 Eos % (Auto) 0.0 % 07/03/24 05:12 Baso % (Auto) 0.1 % 07/03/24 05:12 Neut # (Auto) 7.32 10^3/uL (1.8-7.7) 07/03/24 05:12 Lymph # (Auto) 0.6 10^3/uL (0.8-4.8) L 07/03/24 05:12 [place] # (Auto) 0.9 10^3/uL (0.2-0.9) 07/03/24 05:12 Eos # (Auto) 0.0 10^3/uL (0.0-0.8) 07/03/24 05:12 Baso # (Auto) 0.0 10^3/uL (0.0-0.1) 07/03/24 05:12 Nucleated RBC % (auto) 0 % 07/03/24 05:12 Nucleated RBCs # 0.0 /100WBC 07/03/24 05:12 Sodium 140 mmol/L (136-145) 07/03/24 05:12 Potassium 4.2 mmol/L (3.5-5.1) 07/03/24 05:12 Chloride 107 mmol/L (98-107) 07/03/24 05:12 Carbon Dioxide 25 mmol/L (22-29) 07/03/24 05:12 Anion Gap 12.2 (5-19) 07/03/24 05:12 BUN 14 mg/dL (8-23) 07/03/24 05:12 Creatinine 0.6 mg/dL (0.7-1.2) L 07/03/24 05:12 GFR Calculation 134.4 mL/min (90-130) H 07/03/24 05:12 Glucose 122 mg/dL (65-115) H 07/03/24 05:12 Calculated Osmolality 292 mOsm/kg (285-295) 07/03/24 05:12 Calcium 7.8 mg/dL (8.5-10.5) L 07/03/24 05:12 Blood Type A Positive 07/02/24 09:20 Rho(D) Type Rh positive 07/02/24 09:20 Antibody Screen Negative 07/02/24 09:20 Vitals Last Vital Signs Temp 97.6 F 07/03/24 12:00 Pulse 70 07/03/24 14:13 Resp 18 07/03/24 14:09 BP 130/60 07/03/24 14:13 Pulse Ox 98 07/03/24 14:13 O2 Del Method Room Air 07/03/24 12:00 O2 Flow Rate 8 07/02/24 15:50 Discharge Plan Discharge Patient Disposition: Home Health Service Condition: Stable Prescriptions: New Eliquis 2.5 mg tablet 2.5 mg PO BID 35 Days Qty: 70 0RF methocarbamol 500 mg tablet 500 mg PO TID PRN (Reason: muscle spasms/pain) 14 Days Qty: 42 0RF Continued hydroxychloroquine 200 mg tablet 200 mg PO BID Qty: 180 1RF prednisone 20 mg tablet See Rx Instructions .ROUTE .COMPLEX Qty: 30 1RF Dose Instruction: TAKE 2 TABLETS BY MOUTH DAILY FOR 7 DAYS NEEDED FOR ARTHRITIS FLARE Rx Instructions: TAKE 2 TABLETS BY MOUTH DAILY FOR 7 DAYS NEEDED FOR ARTHRITIS FLARE ropinirole 1 mg tablet 1 mg PO QPM 90 Days Qty: 90 0RF fluticasone propionate 50 mcg/actuation spray,suspension See Rx Instructions .ROUTE .COMPLEX Qty: 16 2RF Dose Instruction: ADMINISTER 2 SPRAYS INTO EACH NOSTRIL DAILY FOR 2 WEEKS, THEN 1 SPRAY INTO EACH NOSTRIL DAILY NEEDED Rx Instructions: ADMINISTER 2 SPRAYS INTO EACH NOSTRIL DAILY FOR 2 WEEKS, THEN 1 SPRAY INTO EACH NOSTRIL DAILY NEEDED gabapentin 400 mg capsule 400 mg PO TID 90 Days Qty: 270 1RF omeprazole 40 mg capsule,delayed release(DR/EC) 40 mg PO DAILY metoprolol tartrate 25 mg tablet 25 mg PO BID No Action hydrocodone-acetaminophen 5-325 mg tablet 1 tab PO BID PRN (Reason: pain) 30 Days Qty: 60 0RF Discharge Orders: Discharge Order (Routine); Ordered 07/03/24 Ordered By: Peng Ortega Other Ambulatory Orders: DME: Walker (Order) Location: None Selected Ordered By: Peng Ortega Physical Therapy Eval and Treat Outpatient (Order) Timeframe: 3 Days Facility: [facility] - Location: Physical Therapy [place] Ordered By: Aníbal Miller Referrals: Peg Vasquez MD [Primary Care Provider] - 07/09/24 11:30 am Peng Ortega DO [Physician] - 07/18/24 8:30 am Discharge Diet: Regular Discharge Activity: Limit activity as instructed and Use walker/crutches as instructed Patient Instructions: Methocarbamol (By mouth), Ondansetron (By mouth), Apixaban (By mouth) (Eliquis), Acute Wound Care (DC), Opioid Safety, Post Anesthesia Care Activity Restrictions/Additional Instructions: Orthopedic discharge instructions: Right hip--Lamar Dressing--Keep dressing on and dry. After 3 days you can remove some of the dressing and shower. disconnect battery pack when showering. Lamar dressing will stay on until follow up appt in 2 weeks. The battery pack for the dressing will at 5-7 days. Battery pack can be removed and discarded once batteries . Left hip?leave the silvalon dressing on dry and intact until follow up appt in clinic in 2 weeks. Patient should keep dressings clean dry and intact Okay to shower over dressings if they do become wet these should be removed and new dressings applied Keep incisions clean dry and intact, leave Silverlon bandage dressings on in place for 7 days after that may rinse incisions with warm soapy water pat dry and redress with a dry dressing Weight-bear as tolerated to operative lower extremity Anterior hip precautions as instructed by physical therapy Ice as needed for pain and swelling Take pain medication as prescribed Take antinausea medication as needed Take muscle relaxer as prescribed recommend taking in the evening before bed for muscle spasms Supplement with Citracal vitamin D for bone health and healing Pain medication can cause constipation. take [id number] stool softeners and or MiraLAX. Take blood thinner as prescribed (Eliquis) Follow-up in the orthopedic office in 2 weeks Contact the office for any questions or concerns Discharge Attestations Time Spent in Discharge Care*: less than 30 min Quality Metrics Clinical Quality Measures [ No reported AMI, CVA or VTE this stay] Coding Level of Care Code Acute Code for Chg Fwd Diagnoses S/P total right hip arthroplasty Z96.641 Time Spent (min) 25
--- NOTE | 2024-07-03 13:19 | P.PN_ITS ---
Subjective 2 Subjective: Patient progressing well has progressed with therapies ready for discharge today. Vitals/I&O/Wt Last Vital Signs Temp 97.6 F 07/03/24 12:00 Pulse 74 07/03/24 12:00 Resp 16 07/03/24 12:00 BP 135/68 07/03/24 12:00 Pulse Ox 95 07/03/24 12:00 O2 Del Method Room Air 07/03/24 12:00 O2 Flow Rate 8 07/02/24 15:50 07/02/24 07/03/24 07/03/24 22:59 06:59 14:59 Intake Total 1174.5 / 1724.5 1002.5 / 2727.0 750 / 750 Output Total 975 / 975 1630 / 2605 Balance 199.5 / 749.5 -627.5 / 122.0 750 / 750 Weight last 48 hrs Weight 197 lb Weight 197 lb Weight 197 lb Physical Exam 2 Narrative: Right hip examination: Dressing on in place, clean dry and intact. No evidence of saturation. Patient has normal postoperative swelling and tenderness to palpation to the right hip. Compartments are soft compressible,'s calf soft and nontender. Sensations intact to light touch distally. Distal pulses are palpable. Patient is able to wiggle toes as well as plantarflex and dorsiflex ankle. Patient can perform straight leg raise. Lamar incisional VAC dressing on the right hip clean dry and intact with good seal the left iliac wing hip incisions clean dry and intact, patient has normal postoperative tenderness palpation at incision sites. Urinary Catheter Management: [place]: Cath Placed During This Visit: yes Reason for Continuing Indwelling Catheter: Perioperative Use in Selected Surgeries Urinary Catheter Date of Insertion: 07/02/24 Urinary Catheter Time of Insertion: 12:20 Data 07/03/24 05:12 07/03/24 05:12 A&P Assessment and plan (1) S/P total right hip arthroplasty: Plan Status post postop day 1 right total hip arthroplasty PT/OT Anterior hip precaution Weight-bear as tolerated right lower extremity Pain control DVT prophylaxis Resume diet Complete postoperative antibiotics and TXA Internal medicine on board for medical management appreciate their assistance?stable from internal medicine stable Plan for discharge today home with home health care PDMP PDMP Reviewed: Last Reviewed 07/03/24 14:16 EST by Peng Ortega DO [place] 2 Medical Necessity Statement*: Ongoing care status post right total hip arthroplasty Coding Level of Care Code Acute Code for Chg Fwd Diagnoses S/P total right hip arthroplasty Z96.641
== END 2024-07-03 14:16 | disposition home health service (06) ==
LOC: MEDSURG 15:28
PROVIDERS: Physician Assistant; Admitting Provider Student in an Organized Health Care Education/Training Program; PCP Family Medicine; Visit Provider Student in an Organized Health Care Education/Training Program
PROC: 8E0Y0CZ Robotic Assisted Procedure of Lower Extremity, Open Approach (ICD-10-PCS; CPT 27130; principal; 2024-07-02 11:40)
DX: M16.11 Unilateral primary osteoarthritis, right hip (principal); K08.409 Partial loss of teeth, unspecified cause, unspecified class; I10 Essential (primary) hypertension; K21.9 Gastro-esophageal reflux disease without esophagitis; Z87.891 Personal history of nicotine dependence; N40.1 Benign prostatic hyperplasia with lower urinary tract symptoms; R35.0 Frequency of micturition; G60.0 Hereditary motor and sensory neuropathy; G25.81 Restless legs syndrome; Z79.899 Other long term (current) drug therapy; Z88.8 Allergy status to other drugs, medicaments and biological substances; Z96.652 Presence of left artificial knee joint; Z96.642 Presence of left artificial hip joint
CPT/HCPCS: 27130; 36415; 51702; 73502; 76000; 80048; 85025; 86850; 86900; 97116; 97161; 97165; C1713; C1776; G0378; J0131; J0690; J1100; J1171; J1885; J2250; J2371; J2704; J3010; J3370; J3490; J7030; J7120; J9999

== ENCOUNTER → 2024-07-18 08:34 | Outpatient (BNVA) | payer MEDICARE, SELFPAY | PROVIDERS: PCP Family Medicine; Visit Provider Student in an Organized Health Care Education/Training Program | DX: Z96.641 Presence of right artificial hip joint (principal) | CPT/HCPCS: 73502; 99024 ==

== ENCOUNTER → 2024-08-21 10:36 | Outpatient (BNVA) | payer MEDICARE, SELFPAY | PROVIDERS: PCP Family Medicine; Visit Provider Podiatrist Foot & Ankle Surgery | DX: I73.9 Peripheral vascular disease, unspecified (principal); L60.3 Nail dystrophy; L84 Corns and callosities; G60.0 Hereditary motor and sensory neuropathy; R26.9 Unspecified abnormalities of gait and mobility; Z91.81 History of falling; M21.371 Foot drop, right foot; M21.372 Foot drop, left foot | CPT/HCPCS: 11056; 11721 ==

== ENCOUNTER → 2024-09-04 12:46 | Outpatient (BNVA) | payer MEDICARE, SELFPAY | PROVIDERS: PCP Family Medicine; Visit Provider Student in an Organized Health Care Education/Training Program | DX: Z96.641 Presence of right artificial hip joint (principal) | CPT/HCPCS: 73502; 99024 ==